=== PATIENT | female | born 1955 | race Two or more races ===

== ENCOUNTER 2016-11-25 11:48 | Day surgery (SDC) | payer BC ==
[~2016-11-25 11:48] MED LIST: Buffered Lidocaine 0.9% SYRIN* 5 ML/SYR SYRINGE INTRADERM ONE; Buffered Lidocaine 0.9% SYRIN* 5 ML/SYR SYRINGE ONE; Famotidine IV* 10 MG/ML 2 ML (20 mg) IV ONE; Sodium Citrate/Citric Acid* 15 ML UDC ONE; Sodium Citrate/Citric Acid* 15 ML UDC PO ONE
[2016-11-25] MEDS ORDERED: EPINEPHrine AMP 1 MG/ML ONE ×2 (13:23→13:26)
[2016-11-25] MEDS ORDERED: Gelfoam Sponge SIZE 100* SPONGE ONE (13:24)
[2016-11-25] MEDS ORDERED: Lidocaine 1.5% EPI 1:200,000* 30 ML SDV ONE (13:24)
[2016-11-25] MEDS ORDERED: Bacitracin OINTMENT* 1 TUBE ONE (13:24)
[2016-11-25] MEDS ORDERED: Ciprofloxacin 0.3% OPTH.SOL* 2.5 ML BTL ONE (13:24)
[2016-11-25] MEDS ORDERED: Propofol* 10 MG/ML 20 ML BTL IV PUSH ONE (13:26)
[2016-11-25] MEDS ORDERED: Lidocaine 2% PF * 5 ML VIAL ONE (13:26)
[2016-11-25] MEDS ORDERED: Cisatracurium* 2 MG/ML MDV 5 ML ONE (13:26)
[2016-11-25] MEDS ORDERED: fentaNYL* 50 MCG/ML 2 ML VIAL (100 MCG VIAL) ONE (13:38)
[2016-11-25] MEDS ORDERED: Ondansetron INJ* 2 MG/ML VIAL ONE (15:07)
[2016-11-25] MEDS ORDERED: Glycopyrrolate IV* 0.2 MG/ML 1 ML VIAL ONE (15:13)
[2016-11-25] MEDS ORDERED: Neostigmine Methylsulfate* 2 MG/2 ML SYRINGE ONE (15:13)
[2016-11-25] MEDS ORDERED: fentaNYL* 50 MCG/ML 2 ML VIAL (100 MCG VIAL) IV PRN (15:29)
[2016-11-25] MEDS ORDERED: HYDROcodone/ACETAMIN 5-325 MG* 1 TAB ONE (16:44)
[2016-11-25 17:19] VITALS: BP 120/44
--- NOTE | 2016-11-26 09:40 | OP ---
DATE OF OPERATION: 11/25/16 - [facility] DATE OF : 55 ATTENDING SURGEON: Tree Adame MD [employer] SUPERVISOR: None. ANESTHESIOLOGIST: Zia Ramirez DO ANESTHESIA: General. PRE-OP DIAGNOSIS: Conductive hearing loss in the left ear. POST-OP DIAGNOSIS: Otosclerosis of the left ear. OPERATIVE PROCEDURE: Left stapedectomy, small-fenestra technique utilizing CO2 laser and a SMart prosthesis. FINDINGS: Fixed stapes with otosclerotic bone involving the anterior portion of the footplate. EBL: Negligible. INDICATION: This is a 60-year-old woman, who has had decades of progressive conductive hearing loss in the left ear. After preoperative evaluation, it was determined that this was likely secondary to otosclerosis and so a left stapedectomy was planned. DESCRIPTION OF PROCEDURE: On 11/25/16, the patient was brought to the operating room. General anesthesia was induced and an oral endotracheal tube was placed. The left ear was prepped with Betadine and draped sterilely. A time-out was performed. The ear was then cleaned of Betadine and irrigated with saline. A four-quadrant canal injection was made with 1% lidocaine with 1: 100,000 epinephrine. Radial incisions were made at 12 o'clock and 6 o'clock using a sickle knife. A disposable angle [place] blade was then used to make an incision posteriorly connecting the radial incisions. A piece of epinephrine- soaked Gelfoam was then placed into the ear canal and a few minutes were allowed for vasoconstriction. The self-retaining speculum monique was used and secured to the bed frame. The Gelfoam was then removed. A tympanomeatal flap was then raised. The middle ear was entered. The chorda tympani nerve was identified. It was protected throughout the procedure. Surgical curettes were used to remove the bony overhang of the scutum to allow for better visualization of the posterior part of the stapes suprastructure. Once the curetting was complete and good visualization was confirmed, the middle ear was explored. The ossicular chain was palpated. It was very clear that the stapes was the point of fixation and so the procedure was continued. A joint knife was used to separate the incudostapedial joint. Bellucci scissors was then used to divide the stapedius tendon. The CO2 laser was then brought into the field. The laser was used on a single pulse setting at a variety of different cortez from 2 to 4 imn to weaken the posterior chin. The suprastructure was then downfractured. The suprastructure was then removed and submitted for specimen. This enabled an excellent view of the footplate. The anterior portion of the footplate appeared quite thickened posteriorly; however, the footplate appeared fairly normal thickness. It was in this region that a willa was created utilizing the CO2 laser, most of the pulses were supplied between 2 and 4 min. Once the willa was created, a series of perforators were used to ensure the diameter was appropriate for the prosthesis and to clean the ragged edges of the stapedotomy. Prior to creation of the willa, a measurement was made to determine the optimal length of the prosthesis. A 4.25 mm x 0.5 mm had been selected. This was then brought into the field, it was placed into the stapedotomy and hung from the incus. The position appeared to be excellent and the laser was used to crimp the prosthesis to the incus. The heating iron was then used to further crimp the prosthesis in position. There was excellent transmission of motion through the ossicular chain and to the piston, which appeared to be unimpeded. The promontory was then scratched with a curved pick. A small amount of blood was allowed to drip down around the footplate to create a seal. The tympanomeatal flap was then laid back down and the ear canal was packed with small pieces of ciprofloxacin-soaked Gelfoam. A cotton ball was placed and the patient was returned to the care of the anesthesiologist, extubated, and delivered to PACU in stable condition. [id number]/[facility] #: [id number] [facility]
== END 2016-11-25 17:42 | disposition home or self-care (01) ==
LOC: OR 11:48
PROVIDERS: ATTEND Otolaryngology
DX: H80.92 Unspecified otosclerosis, left ear (principal); E11.51 Type 2 diabetes mellitus with diabetic peripheral angiopathy without gangrene; E78.00 Pure hypercholesterolemia, unspecified; F17.210 Nicotine dependence, cigarettes, uncomplicated; Z88.8 Allergy status to other drugs, medicaments and biological substances; Z79.4 Long term (current) use of insulin
CPT/HCPCS: A9270-GY; C1713; J0171; J2405; J2704; J3010